=== PATIENT | female | born 1965 | race Caucasian/White ===

== ENCOUNTER → 2021-03-02 | Outpatient (CLI) | payer BC ==
[~2021-03-02] MED LIST: Accuneb1.25 MG/3 INH; FLUT1DIS8 INH
== END ==
LOC: LAB 13:35 → LAB SHORT 13:35
DX: R93.89 Abnormal findings on diagnostic imaging of other specified body structures (principal); N84.1 Polyp of cervix uteri
CPT/HCPCS: 88305

== ENCOUNTER 2021-07-26 12:00 | Day surgery (SDC) | payer BC ==
[~2021-07-26] VITALS: Ht 157.5 cm; Wt 101.2 kg
[2021-07-26] MEDS ORDERED: Ventolin/Prove6.7 GM INH (12:55)
--- NOTE | 2021-07-26 14:15 | NUR ---
07/26/21 1415 Kimberlee Troncoso 200NACL FLUID DEFICIT. SURGEON AND ANESTHESIA AWARE.
--- NOTE | 2021-07-26 14:33 | NUR ---
07/26/21 1433 Chloé Keita PT REFUSES IV PAIN MEDICATION AT THIS TIME.
== END 2021-07-26 15:14 | disposition home or self-care (01) ==
LOC: ORSCSDS 12:00
PROVIDERS: Obstetrics & Gynecology
PROC: 0UDB8ZX Extraction of Endometrium, Via Natural or Artificial Opening Endoscopic, Diagnostic (ICD-10-PCS; principal; 2021-07-26 13:30)
PROC: 0UB98ZX Excision of Uterus, Via Natural or Artificial Opening Endoscopic, Diagnostic (ICD-10-PCS; principal; 2021-07-26 13:30)
DX: N95.0 Postmenopausal bleeding (principal); R93.89 Abnormal findings on diagnostic imaging of other specified body structures; N84.0 Polyp of corpus uteri; I10 Essential (primary) hypertension; E66.01 Morbid (severe) obesity due to excess calories; Z68.41 Body mass index [BMI] 40.0-44.9, adult; J45.909 Unspecified asthma, uncomplicated; Z79.899 Other long term (current) drug therapy
CPT/HCPCS: 87426; 88305; A9270; C9803; J1100; J1885; J2250; J2405; J2704; J3010; J7120

== ENCOUNTER → 2021-09-20 | Outpatient (CLI) | payer BC ==
[~2021-09-20] MED LIST changes: +Ventolin/Prove6.7 GM INH
== END | disposition home or self-care (01) ==
LOC: LAB SHORT 11:17
DX: D48.5 Neoplasm of uncertain behavior of skin (principal); D22.4 Melanocytic nevi of scalp and neck
CPT/HCPCS: 88305